=== PATIENT | male | born 1955 | race Two or more races ===

== ENCOUNTER 2025-09-02 10:40 | Outpatient (CLI) | payer OTHER ==
[~2025-09-02 10:40] MED LIST: METFORMIN HCL500 M3 PO; REPATHA SU140 MG/1 M SUBCUTANEO; TOPROL XL25 M1 PO; TROSPIUM CHLORI20 MG PO; ZESTRIL2.5 MG PO; ZETIA10 MG PO
[2025-09-02 12:41] LABS: ALT/SGPT 28.0 U/L (12-78); AST/SGOT 24.0 U/L (15-37); BILIRUBIN TOTAL 2.32 mg/dL (0.3-1.2); BUN CREA RATIO 14.0 (7.0-25.0); CREATININE SERUM 1.18 mg/dL (0.70-1.30); GFR 61.21; GLOBULINA 3.7 G/DL (2.4-3.5); GLUCOSE FASTING 98.0 mg/dL (65-100); OSMOLALITY SERUM 286.0 MOSM/KG (275-295)
[2025-09-03] MEDS ORDERED: PERCOCET 5-3251 EACH PO (13:50)
[2025-09-03] MEDS ORDERED: INTESTINEX680 M1 PO (13:50)
[2025-09-03] MEDS ORDERED: NEURONTIN300 MG PO (13:50)
[2025-09-03] MEDS ORDERED: CELECOXIB200 MG PO (13:50)
== END 2025-09-02 14:46 | disposition home or self-care (01) ==
LOC: LAB 10:40
DX: Z00.01 Encounter for general adult medical examination with abnormal findings (principal)

== ENCOUNTER 2025-09-03 10:00 | Day surgery (SDC) | payer OTHER ==
[2025-08-26 11:06] VITALS: BP 133/85
[~2025-09-03] VITALS: Ht 167.6 cm; Wt 78.9 kg
[2025-09-03] MEDS ORDERED: METRONIDAZOLE/SODIUM CHLORIDE 500 MG/100 ML PIGGYBACK IV ONE (10:49)
[2025-09-03] MEDS ORDERED: CEFTRIAXONE SODIUM 2,000 MG VIAL ONE (10:49)
[2025-09-03] MEDS ORDERED: POVIDONE-IODINE 118 ML BOTT TOP ONE (13:18)
[2025-09-03] MEDS ORDERED: BUPIVACAINE HCL/MPF 0.5% 30ML VIAL ONE (13:18)
[2025-09-03] MEDS ORDERED: DIBUCAINE 30 GM TUBE ONE (13:18)
[2025-09-03] MEDS ORDERED: HEMOSTATIC MATRIX 1 KIT KIT TOP ONE (13:18)
[2025-09-03] MEDS ORDERED: LIDOCAINE HCL 1%/EPINEPHRINE 20ML VIAL IJ ONE (13:19)
[2025-09-03] MEDS ORDERED: INTESTINEX680 M1 PO (13:50)
[2025-09-03] MEDS ORDERED: NEURONTIN300 MG PO (13:50)
[2025-09-03] MEDS ORDERED: CELECOXIB200 MG PO (13:50)
[2025-09-03] MEDS ORDERED: PERCOCET 5-3251 EACH PO (13:50)
== END 2025-09-03 18:30 | disposition home or self-care (01) ==
LOC: CIR.AMB 10:00
PROVIDERS: ATTEND Surgery
DX: K60.321 Anal fistula, complex, initial (principal); K60.1 Chronic anal fissure